=== PATIENT | female | born 1980 | race Caucasian/White ===

== ENCOUNTER 2024-08-05 15:51 | Emergency (ER) | payer SELFPAY ==
[2024-08-05 15:55] VITALS: BP 126/75; PULSE 101; TEMP 37.2; O2SAT 97; BMI 33.1
[2024-08-05 16:25] LABS: Influenza Virus A Antigen Negative; Influenza Virus B Antigen Negative; Internal Control Within Normal Limits; Strep A Antigen Screen Negative
[2024-08-05 16:26] LABS: Internal Control Within Normal Limits; SARS-CoV-2 Ag NEGATIVE (NEGATIVE)
[2024-08-05 16:39] VITALS: O2SAT 96
--- NOTE | 2024-08-05 16:45 | ED_ITS ---
HPI - URI/Sore Throat General Chief Complaint: Upper Respiratory Infection Stated Complaint: EARACHE, SORE THROAT, COVID EXPOSURE Time Seen by Provider: 08/05/24 16:06 Source: patient History of Present Illness HPI Narrative: Patient is a 43-year-old female who presents to the emergency department for 2- day history of upper respiratory symptoms. She reports right ear pain, sore throat, nasal congestion and cough. No fevers or vomiting. She is not concerned for . No medications taken today prior to arrival. Related Data Previous Rx's ?Medication ?Instructions ?Recorded zjyrvmkabtjgusm-mdpbqxypeazycss-GY 10 ml PO Q6H PRN cold symptoms 08/05/24 2 mg-30 mg-10 mg/5 mL oral syrup #200 mL (Bromfed DM) Allergies Allergy/AdvReac Type Severity Reaction Status Date / Time No Known Drug Allergies Allergy Verified 08/05/24 16:01 Review of Systems ROS Constitutional Denies: fever or chills Ears, nose, mouth, and throat Reports: throat pain, ear pain and nasal congestion; Denies: ear discharge Cardiovascular Denies: chest pain Respiratory Reports: cough; Denies: shortness of breath Gastrointestinal Denies: nausea or vomiting Integumentary/Breast Denies: rash Neurological Denies: numbness in extremities or weakness in extremities Hematologic/Lymphatic Denies: easy bruising or easy bleeding PFSH [facility] Social History Little interest or pleasure in doing things: not at all Feeling down, depressed, or hopeless: not at all Exam Narrative Exam Narrative: Gen.: Awake, alert, in no distress Head: Normocephalic, atraumatic ENT: Moist mucous membranes, bilateral TMs are fluid-filled, no erythema or injection. Clear speech, no pharyngeal erythema or tonsillar edema. Uvula midline. No trismus or drooling Respiratory: No respiratory distress, lungs clear bilaterally; harsh cough noted with no wheezing or rhonchi Cardio: Regular rate and rhythm Extremities: Moves extremities equally Psych: Normal mood and affect Neuro: No focal neuro deficit Skin: Warm, dry, intact Constitutional Vital Signs, click to edit/add: Last Vital Signs Temp 98.9 F 08/05/24 15:55 Pulse 101 H 08/05/24 15:55 Resp 20 08/05/24 15:55 BP 126/75 08/05/24 15:55 Pulse Ox 96 08/05/24 16:39 O2 Del Method Room Air 08/05/24 16:39 Course Vital Signs Vital signs: Vital Signs Temperature 98.9 F 08/05/24 15:55 Pulse Rate 101 H 08/05/24 15:55 Respiratory Rate 20 08/05/24 15:55 Blood Pressure 126/75 08/05/24 15:55 Pulse Oximetry 97 08/05/24 15:55 Oxygen Delivery Method Room Air 08/05/24 15:55 Temperature 98.9 F 08/05/24 15:55 Pulse Rate 101 H 08/05/24 15:55 Respiratory Rate 20 08/05/24 15:55 Blood Pressure 126/75 08/05/24 15:55 Pulse Oximetry 96 08/05/24 16:39 Oxygen Delivery Method Room Air 08/05/24 16:39 MDM - URI/Sore Throat MDM Narrative Medical decision making narrative: Patient was stable vital signs, swabs for COVID, influenza and strep are all negative. Patient was given Decadron in the ER for symptoms and discharged home with Bromfed-DM. She was encouraged to retest for COVID as this was her primary concern if she continues to be sick and another 3 to 5 days. Follow-up with PCP and return to the ER if symptoms change or worsen SUPERVISED APC VISIT, PHYSICIAN ATTESTATION: Based on the medical record the care appears appropriate. ? Medical Records Attestation: I reviewed the patient's medical records. Lab Data Attestation: I reviewed the patient's lab results. Labs: Lab Results 08/05/24 Range/Units 16:05 Influenza Type A Ag Negative Influenza Type B Ag Negative SARS-CoV-2 Ag (CV2AG) Negative (NEGATIVE) Streptococcus Screen Negative Discharge Plan Discharge Chief Complaint: Upper Respiratory Infection Clinical Impression: Upper respiratory infection Patient Disposition: Home, Self-Care Time of Disposition Decision: 16:44 Condition: Good Prescriptions / Home Meds: New xknjafgqasyhvwz-qfybdcznd-ZV [Bromfed DM] 2-30-10 mg/5 mL syrup 10 ml PO Q6H PRN (Reason: cold symptoms) Qty: 200 0RF Print Language: Finnish Instructions: Upper Respiratory Infection (ED) Referrals: Physician,Non-Staff, MD [Primary Care Provider] - 1 week
[2024-08-05] MEDS: DEXAMETHASONE SOD PHOS 10 MG/ML VIAL PO (16:50)
== END 2024-08-05 17:02 | disposition home or self-care (01) ==
PROVIDERS: Physician Assistant; Emergency Provider Student in an Organized Health Care Education/Training Program
DX: J06.9 Acute upper respiratory infection, unspecified (principal); Z20.822 Contact with and (suspected) exposure to COVID-19
CPT/HCPCS: 87070; 87502; 87804; 87811; 87880; 99283; J1100

== ENCOUNTER 2024-09-17 16:58 | Emergency (ER) | payer SELFPAY ==
[2024-09-17 17:01] VITALS: BP 121/82; PULSE 100; TEMP 37.2; O2SAT 99; BMI 34.0
--- NOTE | 2024-09-17 17:10 | XR_ITS ---
The [address] [address] Patient Name: MICHELLE GRECO MRN: [id number] date: 1980 Sex: F Assigned Patient Location: ER Current Patient Location: ED.MAIN Accession/Order Number: [id number] Exam Date: 09/17/2024 17:12 Report Date: 09/17/2024 18:12 At the request of: BENIGNO HODGES Procedure: XR foot LT min 3V EXAMINATION: XR foot LT min 3V, , 09/17/2024 5:12 PM EST INDICATION: heel pain HISTORY: Ordering Provider Reason for Exam: heel pain Technologist Note: Additional: COMPARISON: None. TECHNIQUE: Left foot x-ray: 3 view(s). FINDINGS: No acute fracture. Joint alignment is anatomic. Joint spaces are preserved. Soft tissues are within normal limits. Large plantar calcaneal spur is seen. XR/XR foot LT min 3V IMPRESSION: No acute fracture or traumatic malalignment. Electronically authenticated by: CLEM SALCIDO Date: 09/17/2024 18:12
--- NOTE | 2024-09-17 17:10 | ED_ITS ---
HPI - Extremity Problem General Chief complaint: Extremity Problem, Nontraumatic Stated complaint: Left Foot Pain Time Seen by Provider: 09/17/24 17:05 Source: patient Mode of arrival: walk-in Limitations: no limitations History of Present Illness HPI Narrative: 43 year old female presents to the ED for pain to her left heel. Onset was months ago. It is worse with ambulation. Denies fever, chills, injury, weakness, N/T. Related Data Previous Rx's ?Medication ?Instructions ?Recorded naproxen 500 mg tablet (Naprosyn) 500 mg PO BID PRN pain #14 tabs 09/17/24 Allergies Allergy/AdvReac Type Severity Reaction Status Date / Time No Known Drug Allergies Allergy Verified 09/17/24 17:03 Review of Systems ROS Constitutional Denies: fever or chills Cardiovascular Denies: chest pain Respiratory Denies: shortness of breath Musculoskeletal Reports: extremity pain; Denies: back pain or extremity swelling Integumentary/Breast Denies: rash, redness or sores Neurological Denies: numbness in extremities or weakness in extremities PFSH PFSH Social History Little interest or pleasure in doing things: not at all Feeling down, depressed, or hopeless: not at all Exam Constitutional Vital Signs, click to edit/add: Last Vital Signs Temp 98.9 F 09/17/24 17:01 Pulse 100 H 09/17/24 17:01 Resp 18 09/17/24 17:01 BP 121/82 09/17/24 17:01 Pulse Ox 99 09/17/24 17:01 O2 Del Method Room Air 09/17/24 17:01 Common normals: no apparent distress and oriented x3 General appearance: cooperative Eye Common normals: conjunctivae normal and no scleral icterus Neck & C-Spine Common normals: supple Chest Chest: symmetrical chest wall rise Respiratory Common normals: normal respiratory effort Effort & inspection: able to speak in complete sentences and symmetric chest movement Cardio Common normals: regular rate Peripheral pulses: posterior tibial pulses present and dorsalis pedis pulses present Extremity Other: Tenderness to left foot at anterior heel area. No swelling or wound noted. No erythema noted. Neuro Common normals: oriented x3 and moves all extremities Sensorium/orientation: awake and alert Speech: speech normal Course Vital Signs Vital signs: Vital Signs Temperature 98.9 F 09/17/24 17:01 Pulse Rate 100 H 09/17/24 17:01 Respiratory Rate 18 09/17/24 17:01 Blood Pressure 121/82 09/17/24 17:01 Pulse Oximetry 99 09/17/24 17:01 Oxygen Delivery Method Room Air 09/17/24 17:01 Temperature 98.9 F 09/17/24 17:01 Pulse Rate 100 H 09/17/24 17:01 Respiratory Rate 18 09/17/24 17:01 Blood Pressure 121/82 09/17/24 17:01 Pulse Oximetry 99 09/17/24 17:01 Oxygen Delivery Method Room Air 09/17/24 17:01 MDM - Extremity (Nontraumatic) MDM Narrative Medical decision making narrative: X-ray showed a large plantar calcaneal spur. Findings were discussed with the patient. She was encouraged to follow up with podiatry for a recheck, further evaluation and treatment. A prescription was provided for Naprosyn. Medical Records Attestation: I reviewed the patient's medical records. Imaging Data XR: Attestation: I have reviewed the pertinent imaging results. Radiologist's impression: ITS Impressions Foot X-Ray 09/17/24 17:10 IMPRESSION: No acute fracture or traumatic malalignment. Electronically authenticated by: CLEM SALCIDO Date: 09/17/2024 18:12 Discharge Plan Discharge Chief Complaint: Extremity Problem, Nontraumatic Clinical Impression: Heel pain, Heel spur Patient Disposition: Home, Self-Care Time of Disposition Decision: 18:17 Condition: Good Mode of Transportation: Private Vehicle Prescriptions / Home Meds: New naproxen [Naprosyn] 500 mg tablet 500 mg PO BID PRN (Reason: pain) Qty: 14 0RF Print Language: Romanian Instructions: Heel Spur (ED) Referrals: [facility] [Primary Care Provider] - 1 week Matthieu Huggins DPM [Physician] - 1 week
== END 2024-09-17 18:24 | disposition home or self-care (01) ==
PROVIDERS: Emergency Provider Emergency Medicine
DX: M77.32 Calcaneal spur, left foot (principal); M79.672 Pain in left foot
CPT/HCPCS: 73630; 99283